=== PATIENT | female | born 1960 | race Caucasian/White ===

== ENCOUNTER 2018-01-01 19:22 | Emergency (ER) | payer SELFPAY ==
[2018-01-01 20:46] VITALS: BP 125/80
--- NOTE | 2018-01-01 21:57 | EDM.PDOC ---
ED HPI GENERAL MEDICAL PROBLEM - General Chief Complaint: Respiratory Problem Stated Complaint: RIGHT SIDE PAIN, FALL Time Seen by Provider: 01/01/18 20:46 Source of Information: Reports: Patient History Limitations: Reports: No Limitations - History of Present Illness INITIAL COMMENTS - FREE TEXT/NARRATIVE: This patient said that 2 days ago she fell against a chair at work. She hit the chair with her lower part of her rib cage on the right. She complains of some severe pain in the lower ribs in the right mid axillary and and anterior axillary lines. It hurts to breathe and to place. She's tried taking some Tylenol and Advil. 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: Psychiatric History: Reports: Mood Swings - Infectious Disease History Infectious Disease History: Reports: Measles, Mumps - Past Surgical History GI Surgical History: Reports: Colon Female Surgical History: Reports: Hysterectomy, Salpingo-Oophorectomy, Other (See Below) Other Female Surgeries/Procedures: cystocele Social & Family History - Tobacco Use Smoking Status *Q: Light Tobacco Smoker Years of Tobacco use: 20 Packs/Tins Daily: 0.2 - Caffeine Use Caffeine Use: Reports: Coffee, Tea - Recreational Drug Use Recreational Drug Use: No ED ROS GENERAL - Review of Systems Review Of Systems: ROS reveals no pertinent complaints other than HPI. ED EXAM, GENERAL - Physical Exam Exam: See Below Exam Limited By: No Limitations General Appearance: Alert, WD/WN, Mild Distress Eye Exam: Bilateral Eye: Normal Inspection Neck: Supple Respiratory/Chest: Lungs Clear, Other (Moderate to severe tenderness to the lower ribs in the right mid axillary line) Cardiovascular: Regular Rate, Rhythm Extremities: Other (There is bruising in the right triceps area) Neurological: Alert, Oriented, Sensory/Motor Deficit Skin Exam: Warm, Dry Course - Vital Signs Last Recorded V/S: Last Vital Signs Temp 37.1 C 01/01/18 20:44 Pulse 75 01/01/18 20:44 Resp 16 01/01/18 20:44 BP 125/80 01/01/18 20:44 Pulse Ox 94 L 01/01/18 20:44 - Orders/Labs/Meds Orders: Active Orders 24 hr Category Date Time Status Ribs 2V w Chest Rt [CR] Stat Exams 01/01/18 20:59 Taken - Radiology Interpretation Free Text/Narrative:: Right rib x-ray with chest x-ray showed no evidence of rib fracture or pneumothorax Departure - Departure Time of Disposition: 21:54 Disposition: Home, Self-Care 01 Condition: Fair Clinical Impression: Rib injury - Discharge Information Referrals: Jeison Andrade MD [Primary Care Provider] - Forms: ED Department Discharge Additional Instructions: There was no obvious fracture on the x-ray but there could still be a cracked rib. For pain you may use the Percocet 5/25, #20 tablets, one or 2 every 4 hours as needed. This medication can cause sedation and impair driving or operating machinery so use with caution. You may take some ibuprofen at the same time for more benefit. This medication also is an opiate and can cause dependence if you take it longer than about a week. The cracked ribs 10 to stick together after about a week and the pain should lessen. You should be able to do most activities though you'll be limited by the pain - My Orders Last 24 Hours: My Active Orders 01/01/18 20:59 Ribs 2V w Chest Rt [CR] Stat - Assessment/Plan Last 24 Hours: My Active Orders 01/01/18 20:59 Ribs 2V w Chest Rt [CR] Stat
--- NOTE | 2018-01-04 09:12 | CR ---
Ribs 2V w Chest Rt INDICATION: trauma FINDINGS: Negative PA chest x-ray. Dedicated rib views are negative for acute fracture.
== END 2018-01-01 22:21 | disposition home or self-care (01) ==
LOC: JP.ED 19:22
DX: S40.021A Contusion of right upper arm, initial encounter (principal); S29.9XXA Unspecified injury of thorax, initial encounter; F17.210 Nicotine dependence, cigarettes, uncomplicated; Z88.8 Allergy status to other drugs, medicaments and biological substances; W19.XXXA Unspecified fall, initial encounter; Y99.0 Civilian activity done for income or pay
CPT/HCPCS: 71101-26-RT; 71101-RT; 99285

== ENCOUNTER 2018-01-06 20:43 | Emergency (ER) | payer SELFPAY ==
[2018-01-06 21:41] VITALS: BP 98/64
[2018-01-06] MEDS ORDERED: Acetaminophen/oxyCODONE 325-5 MG Tab PO ONE (22:01)
[2018-01-06] MEDS ORDERED: Ketorolac 30 MG/ML SDV IM ONE (22:01)
--- NOTE | 2018-01-06 22:18 | EDM.PDOC ---
ED HPI GENERAL MEDICAL PROBLEM - General Chief Complaint: General Stated Complaint: FALL AT WORK Time Seen by Provider: 01/06/18 22:00 Source of Information: Reports: Patient, Old Records, RN History Limitations: Reports: No Limitations - History of Present Illness INITIAL COMMENTS - FREE TEXT/NARRATIVE: 57 yo female presents with R sided rib pain. She fell last and came to the ER due to the fall. X-rays at that time did not show any obvious fx's. The first few days she did not need any of her pain meds. As time went on her pain has progressed. She took the Percocet and one did not help her pain and 2 made her high as a kite. She then switched to ibuprofen 800 mg at a time and it is not controlling her pain sufficiently so that she can go to work. 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) (ibuprofen last 6 hrs ago) - Related Data Allergies Allergy/AdvReac Type Severity Reaction Status Date / Time varenicline tartrate Allergy Hallucinati Verified 01/06/18 21:41 [From Chantix] ons Home Meds: Home Meds Escitalopram [Lexapro] 5 mg PO BEDTIME 06/08/16 [History] traZODone 50 mg PO BEDTIME PRN 06/08/16 [History] oxyCODONE HCl/Acetaminophen [Oxycodone-Acetaminophen 5-325] 1 - 2 each PO Q4H [History] Past Medical History Gastrointestinal History: Reports: Other (See Below) 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: Psychiatric History: Reports: Dementia, Mood Swings - Infectious Disease History Infectious Disease History: Reports: Chicken Pox, Measles, Mumps - Past Surgical History GI Surgical History: Reports: Colon Female Surgical History: Reports: Hysterectomy, Salpingo-Oophorectomy, Other (See Below) Other Female Surgeries/Procedures: cystocele Social & Family History - Family History Family Medical History: Noncontributory - Tobacco Use Smoking Status *Q: Light Tobacco Smoker Years of Tobacco use: 20 Packs/Tins Daily: 0.1 - Caffeine Use Caffeine Use: Reports: Coffee - Recreational Drug Use Recreational Drug Use: No ED ROS GENERAL - Review of Systems Review Of Systems: See Below Constitutional: Reports: No Symptoms HEENT: Reports: No Symptoms Respiratory: Reports: Pleuritic Chest Pain Cardiovascular: Reports: No Symptoms Endocrine: Reports: No Symptoms GI/Abdominal: Reports: No Symptoms : Reports: No Symptoms Musculoskeletal: Reports: No Symptoms Skin: Reports: No Symptoms Neurological: Reports: No Symptoms ED EXAM, GENERAL - Physical Exam Exam: See Below Exam Limited By: No Limitations General Appearance: Alert, WD/WN, No Apparent Distress Eye Exam: Bilateral Eye: Normal Inspection Ears: Normal External Exam, Normal Canal, Hearing Grossly Normal Ear Exam: Bilateral Ear: Auricle Normal, Canal Normal Nose: Normal Inspection, Normal Mucosa, No Blood Throat/Mouth: Normal Lips, Normal Voice, No Airway Compromise Head: Atraumatic, Normocephalic Neck: Normal Inspection Respiratory/Chest: No Respiratory Distress, Lungs Clear, Normal Breath Sounds, No Accessory Muscle Use, Other (tenderness with palpation over the R lateral chest area. No crepitus.) Cardiovascular: Regular Rate, Rhythm, No Edema GI/Abdominal: Normal Bowel Sounds, Soft, Non-Tender, No Distention Back Exam: Normal Inspection. No: CVA Tenderness (R), CVA Tenderness (L) Extremities: Normal Inspection, Normal Range of Motion, Non-Tender, No Pedal Edema Neurological: Alert, Oriented, CN II-XII Intact, Normal Cognition, No Motor/ Sensory Deficits Psychiatric: Normal Affect, Normal Mood Skin Exam: Warm, Dry, Intact, Normal Color, No Rash Lymphatic: No Adenopathy Course - Vital Signs Text/Narrative:: Toradol 30 mg IM, [place] 1 po(ordered) - accepted the Toradol, refused the [place] here. Last Recorded V/S: Last Vital Signs Temp 36.3 C 01/06/18 21:40 Pulse 71 01/06/18 21:40 Resp 20 01/06/18 21:40 BP 98/64 01/06/18 21:40 Pulse Ox 100 01/06/18 21:40 - Orders/Labs/Meds Meds: Medications Discontinued Medications Generic Name Dose Route Start Last Admin Trade Name Freq PRN Reason Stop Dose Admin Hydrocodone Bitart/Acetaminophen 1 tab 01/06/18 22:15 01/06/18 22:22 [place] 325-5 Mg PO 01/06/18 22:16 1 tab ONETIME ONE Administration Ketorolac Tromethamine 30 mg 01/06/18 22:01 01/06/18 22:22 Toradol IM 01/06/18 22:02 30 mg ONETIME ONE Administration Oxycodone/Acetaminophen 1 tab 01/06/18 22:01 Percocet 325-5 Mg PO 01/06/18 22:02 ONETIME ONE Departure - Departure Time of Disposition: 22:28 Disposition: Home, Self-Care 01 Condition: Good Clinical Impression: Rib pain on right side - Discharge Information Referrals: Jeison Andrade MD [Primary Care Provider] - Forms: ED Department Discharge
[2018-01-06] MEDS: Acetaminophen/HYDROcodone 325-5 MG Tab PO ONE ×2 (22:22→22:28)
[2018-01-06] MEDS ORDERED: Acetaminophen/HYDROcodone 325-5 MG Tab PO ONE (22:35)
== END 2018-01-06 23:11 | disposition home or self-care (01) ==
LOC: JP.ED 20:43
DX: R07.81 Pleurodynia (principal); F17.210 Nicotine dependence, cigarettes, uncomplicated; Z88.8 Allergy status to other drugs, medicaments and biological substances
CPT/HCPCS: 96372; 99283; A9270; J1885

== ENCOUNTER 2021-01-17 20:49 | Emergency (ER) | payer BC, OTHER ==
[2021-01-17 21:29] VITALS: BP 117/67; PULSE 89
[2021-01-17] MEDS ORDERED: Lidocaine 1% with EPINEPHrine 1:100,000 50 ML MDV SUBCUT STA (21:47)
--- NOTE | 2021-01-17 21:49 | EDM.PDOC ---
ED HPI GENERAL MEDICAL PROBLEM - General Chief Complaint: Skin Complaint Stated Complaint: BLOOD BLISTER ON LIP , ACTIVELY BLEEDING Time Seen by Provider: 01/17/21 21:43 Source of Information: Reports: Patient, Family, RN Notes Reviewed History Limitations: Reports: No Limitations - History of Present Illness INITIAL COMMENTS - FREE TEXT/NARRATIVE: 60-year-old female presents emergency department day complaint of bleeding lip unable to stop, she has a known history of a venous hess right side she has had some minor trauma and it is continuing to ooze - Related Data Allergies Allergy/AdvReac Type Severity Reaction Status Date / Time varenicline tartrate Allergy Hallucinati Verified 01/17/21 21:29 [From Chantix] ons Home Meds: Home Meds Escitalopram [Lexapro] 5 mg PO BEDTIME 06/08/16 [History] traZODone 50 mg PO BEDTIME PRN 06/08/16 [History] Atropine/Diphenoxylate [Diphenoxylate-Atropine] 2 tab PO BID 01/17/21 [History] Past Medical History Gastrointestinal History: Reports: Other (See Below) Other 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: Psychiatric History: Reports: Dementia, Mood Swings - Infectious Disease History Infectious Disease History: Reports: Chicken Pox, Measles, Mumps - Past Surgical History GI Surgical History: Reports: Colon Female Surgical History: Reports: Hysterectomy, Salpingo-Oophorectomy, Other (See Below) Other Female Surgeries/Procedures: cystocele Social & Family History - Family History Family Medical History: No Pertinent Family History - Tobacco Use Tobacco Use Status *Q: Current Every Day Tobacco User Years of Tobacco use: 40 Packs/Tins Daily: 1 - Caffeine Use Caffeine Use: Reports: Coffee - Recreational Drug Use Recreational Drug Use: No ED ROS GENERAL - Review of Systems Review Of Systems: See Below Skin: Reports: Wound ED EXAM, SKIN/RASH Exam: See Below Text/Narrative:: Examination of the lip she does have a small venous hess right side of her face superior lip it is open and oozing blood, 0.3 mils lidocaine with epinephrine was used to control the bleeding Course - Vital Signs Last Recorded V/S: Last Vital Signs Temp 97.4 F 01/17/21 21:32 Pulse 89 01/17/21 21:32 Resp 18 01/17/21 21:32 BP 117/67 01/17/21 21:32 Pulse Ox 93 L 01/17/21 21:32 - Orders/Labs/Meds Meds: Medications Discontinued Medications Generic Name Dose Route Start Last Admin Trade Name Nadira PRN Reason Stop Dose Admin Lidocaine/Epinephrine 20 ml 01/17/21 21:47 01/17/21 21:59 Lidocaine 1% With Epinephrine 1:100,000 50 Ml Mdv SUBCUT 01/17/21 21:48 1 ml NOW STA Administration Silver Nitrate 1 each 01/17/21 21:55 01/17/21 21:59 Silver Nitrate Applicator Each TOP 01/17/21 21:56 1 each ONETIME ONE Administration Departure - Departure Time of Disposition: 22:02 Disposition: Home, Self-Care 01 Condition: Fair Clinical Impression: Venous hess of lip - Discharge Information Referrals: Jeison Andrade MD [Primary Care Provider] - Forms: ED Department Discharge Additional Instructions: Please follow-up with your primary care for referral to dermatology Sepsis Event Note (ED) - Evaluation Sepsis Screening Result: No Definite Risk - Focused Exam Vital Signs: Vital Signs Temp Pulse Resp BP Pulse Ox 01/17/21 21:32 97.4 F 89 18 117/67 93 L 01/17/21 21:28 97.4 F 89 18 117/67 93 L - Assessment/Plan Plan: Assessment Acuity = acute Site and laterality = venous hess Etiology = history of trauma Manifestations = recurrent bleeding Location of injury = Home Lab values = none Plan Recommend follow-up with dermatology for definitive treatment This note was dictated using [employer] voice recognition software please call with any questions on syntax or grammar.
[2021-01-17] MEDS ORDERED: Silver Nitrate Applicator Each TOP ONE (21:55)
== END 2021-01-17 22:21 | disposition home or self-care (01) ==
LOC: JP.ED 20:49
DX: K13.0 Diseases of lips (principal); F03.90 Unspecified dementia, unspecified severity, without behavioral disturbance, psychotic disturbance, mood disturbance, and anxiety; Z79.899 Other long term (current) drug therapy; Z72.0 Tobacco use; Z88.8 Allergy status to other drugs, medicaments and biological substances
CPT/HCPCS: 96372; 99282; 99283

== ENCOUNTER 2021-07-04 07:20 | Day surgery (SDC) | payer BC ==
[2021-07-04] MEDS: Sodium Chloride 0.9% 10 ML Syringe FLUSH PRN (08:03)
[2021-07-04 09:22] VITALS: BP 102/64; PULSE 64
--- NOTE | 2021-07-04 09:23 | OR ---
DATE OF PROCEDURE: 07/04/2021 SURGEON: Charley Phillips MD POSTOPERATIVE CARE: Postoperative care will be provided mainly at the [address] [place] [address] [facility] in conjunction with [facility]. PREOPERATIVE DIAGNOSIS: Cataract, right eye. POSTOPERATIVE DIAGNOSIS: Cataract, right eye. PROCEDURE: Phacoemulsification with intraocular lens placement, right eye. ANESTHESIA: Topical and intracameral. ESTIMATED BLOOD LOSS: Minimal. COMPLICATIONS: None. PATHOLOGY SPECIMENS: None. SURGICAL FINDINGS: None. INDICATION FOR PROCEDURE: The patient is a 60-year-old female with history of a visually significant cataract in the right eye, which interfered with activities of daily living. This consisted of a nuclear sclerosis cataract. Following careful discussion of the risks, benefits and alternatives to cataract extraction with intraocular lens placement including blindness and , the patient elected to proceed, and informed, written consent was obtained prior to the procedure. DESCRIPTION OF THE PROCEDURE: The patient was previously identified, and a shena placed above the right eye. All sources, including the patient, indicated that the right eye was the correct eye. The patient was subsequently taken to the operating room where standard monitors were applied. The patient was then prepped and draped in the usual sterile fashion for ophthalmic surgery. Attention was first directed at the 12 o'clock position where a paracentesis port was fashioned. Shugar solution followed by Viscoat was instilled into the eye. Attention was then directed to the 8:30 position where a triplanar incision was made in a near-clear manner using a keratome. A continuous capsulorrhexis was then made using a combination of the cystotome and Utrata forceps. Hydrodissection was achieved using a balanced salt solution, and the lens rotated nicely. Phacoemulsification was then done using a modified [id number] technique without complication. Phaco time was 2.44 CDE. The remaining cortex was removed using the irrigation/aspiration handpiece. Provisc was then instilled into the eye. A Technis lens, model DIB00, at 20.0 diopters was then placed in the capsular bag using an [place] injector. The remaining viscoelastic was removed using the irrigation/aspiration forceps. All wounds were then checked and found to be watertight. The lid speculum and drapes were removed. Maxitrol ointment was placed in the patient's right eye, and the eye was shielded. The patient tolerated the procedure well. The patient was instructed to follow up tomorrow. All needle and sponge counts were correct at the end of the procedure. There were no surgical findings. Charley Phillips MD /[id number]
== END 2021-07-04 09:32 | disposition home or self-care (01) ==
LOC: JP.SDS 07:20
PROVIDERS: ATTEND Ophthalmology
DX: H25.11 Age-related nuclear cataract, right eye (principal); Z88.8 Allergy status to other drugs, medicaments and biological substances
CPT/HCPCS: V2632

== ENCOUNTER 2021-07-18 08:01 | Day surgery (SDC) | payer BC ==
[2021-07-18] MEDS ORDERED: Sodium Chloride 0.9% 10 ML Syringe FLUSH ONE (08:30)
[2021-07-18 09:54] VITALS: BP 99/62; PULSE 88
--- NOTE | 2021-07-18 10:30 | OR ---
DATE OF PROCEDURE: 07/18/2021 SURGEON: Charley Phillips MD POSTOPERATIVE CARE: Postoperative care will be provided mainly at the [address] [place] [address] [facility] in conjunction with [facility]. PREOPERATIVE DIAGNOSIS: Cataract, left eye. POSTOPERATIVE DIAGNOSIS: Cataract, left eye. PROCEDURE: Phacoemulsification with intraocular lens placement, left eye. ANESTHESIA: Topical and intracameral. ESTIMATED BLOOD LOSS: Minimal. COMPLICATIONS: None. PATHOLOGY SPECIMENS: None. SURGICAL FINDINGS: None. INDICATION FOR PROCEDURE: The patient is a 60-year-old female with history of a visually significant cataract in the left eye, which interfered with activities of daily living. This consisted of a nuclear sclerosis cataract. Following careful discussion of the risks, benefits and alternatives to cataract extraction with intraocular lens placement including blindness and , the patient elected to proceed, and informed, written consent was obtained prior to the procedure. DESCRIPTION OF THE PROCEDURE: The patient was previously identified, and a shena placed above the left eye. All sources, including the patient, indicated that the left eye was the correct eye. The patient was subsequently taken to the operating room where standard monitors were applied. The patient was then prepped and draped in the usual sterile fashion for ophthalmic surgery. Attention was first directed at the 12 o'clock position where a paracentesis port was fashioned. Shugar solution followed by Viscoat was instilled into the eye. Attention was then directed to the 8:30 position where a triplanar incision was made in a near-clear manner using a keratome. A continuous capsulorrhexis was then made using a combination of the cystotome and Utrata forceps. Hydrodissection was achieved using a balanced salt solution, and the lens rotated nicely. Phacoemulsification was then done using a modified [id number] technique without complication. Phaco time was 3.51 CDE. The remaining cortex was removed using the irrigation/aspiration handpiece. Provisc was then instilled into the eye. A Technis lens, model DIB00, at 20.0 diopters was then placed in the capsular bag using an [place] injector. The remaining viscoelastic was removed using the irrigation/aspiration forceps. All wounds were then checked and found to be watertight. The lid speculum and drapes were removed. Maxitrol ointment was placed in the patient's left eye, and the eye was shielded. The patient tolerated the procedure well. The patient was instructed to follow up tomorrow. All needle and sponge counts were correct at the end of the procedure. Charley Phillips MD /[id number]
== END 2021-07-18 10:02 | disposition home or self-care (01) ==
LOC: JP.SDS 08:01
PROVIDERS: ATTEND Ophthalmology
DX: H25.12 Age-related nuclear cataract, left eye (principal); F17.200 Nicotine dependence, unspecified, uncomplicated; Z88.8 Allergy status to other drugs, medicaments and biological substances
CPT/HCPCS: 66984; V2632